=== PATIENT | male | born 1970 | race Caucasian/White ===

== ENCOUNTER 2017-08-30 06:14 | Inpatient (IN) | payer OTHER ==
[2017-08-30] VITALS (95 sets, daily range): BP systolic -9–218; BP diastolic -24–151
[~2017-08-30] VITALS: Ht 172.7 cm; Wt 121.7 kg
[2017-08-30] MEDS ORDERED: SODIUM CHLORIDE 0.9% 1000ML BAG (SEPSIS BOLUS) IV ONE (06:45)
[2017-08-30 07:39] LABS: BASOPHILS % 0.4 % (0.0-2.0); EOSINOPHILS % 0.2 % (0.0-5.0); LYMPHOCYTES % 14.6 % (20.0-50.0); MEAN CORPUSCULAR VOLUME 97.6 fL (80.0-94.0); MONOCYTES % 6.6 % (2.0-8.0); NEUTROPHILS % 78.2 % (40.0-76.0); RED CELL DISTRIBUTION WIDTH 14.8 % (11.6-14.6)
[2017-08-30 07:47] LABS: INR 2.4; PROTHROMBIN TIME 24.4 sec (9.4-11.6)
[2017-08-30 07:49] LABS: HEMATOCRIT. 71.2 % (42.0-52.0); HEMOGLOBIN. 22.6 g/dL (14.0-18.0)
[2017-08-30 07:54] LABS: CARBON DIOXIDE 16 mEq/L (21-32); CHLORIDE 100 mEq/L (98-107)
[2017-08-30 07:56] LABS: BG BASE EXCESS -23.1 mmol/L (-2.0-2.0); BG CARBOXYHEMOGLOBIN 0.2 % (0.5-1.5); BG DEOXYHEMOGLOBIN 1.7 % (0.0-5.0); BG FRACTION INSPIRED OXYGEN 40; BG HCO3 ACT 6.6 mmol/L (22.0-26.0); BG METHEMOGLOBIN 0.6 % (0.0-1.5); BG OXYGEN SATURATION 98.3 % (92.0-98.5); BG OXYHEMOGLOBIN 97.5 % (94.0-97.0); BG PCO2 26.6 mmHg (35.0-45.0); BG PO2 168.8 mmHg (75.0-100.0); BG SAMPLE SITE LEFT RADIAL; BG VENT MODE NASAL CANNULA
[2017-08-30] MEDS ORDERED: SODIUM CHLORIDE 0.9% 1,000 ML IV ONE ×2 (08:20→11:25)
[2017-08-30 08:22] LABS: PLATELET 218 x1000/uL (130-400)
[2017-08-30] MEDS ORDERED: PIPERACILLIN/TAZ 2.25G PREMIX 50 ML IV ONE (08:30)
[2017-08-30] MEDS ORDERED: CEFTRIAXONE 2 G PREMIX 50 ML IV ONE (08:30)
[2017-08-30] MEDS ORDERED: SODIUM BICARBONATE 8.4% 1 MEQ/ML 50ML SYR IV ONE ×3 (08:30→12:45)
[2017-08-30] MEDS ORDERED: PIPERACILLIN/TAZ 3.375G PREMIX 50 ML IV SCH (10:00)
[2017-08-30] MEDS ORDERED: VANCOMYCIN 1,250 MG in DEXT 5% WATER 250 ML IV SCH (10:00)
[2017-08-30] MEDS ORDERED: NOREPINEPHRINE 4 MG in DEXT 5% WATER 246 ML IV ONE (10:15)
[2017-08-30 10:17] LABS: PARTIAL THROMBOPLASTIN TIME 60.2 sec (23.4-31.0)
[2017-08-30 10:29] LABS: ETHANOL BLOOD < 10 mg/dL
[2017-08-30] MEDS ORDERED: NOREPINEPHRINE IV NR (10:45)
[2017-08-30] MEDS ORDERED: NOREPINEPHRINE 4 MG in DEXT 5% WATER 246 ML IV NR (10:45)
[2017-08-30] MEDS ORDERED: SODIUM CHLORIDE 0.45% IV NR (10:45)
[2017-08-30] MEDS ORDERED: SODIUM CHLORIDE 0.45% IV SCH (12:00)
[2017-08-30] MEDS ORDERED: VANCOMYCIN IV SCH (12:00)
[2017-08-30] MEDS ORDERED: SODIUM BICARBONATE 8.4% 1 MEQ/ML 50ML SYR IV SCH (12:45)
[2017-08-30 12:59] LABS: BG FRACTION INSPIRED OXYGEN 100; BG HCO3 ACT 9.9 mmol/L (22.0-26.0); BG PCO2 41.7 mmHg (35.0-45.0); BG PH 6.995 (7.350-7.450); BG PO2 326.7 mmHg (75.0-100.0); BG SAMPLE SITE LEFT BRACHIAL; BG TIDAL VOLUME(mL) 600 mL; BG TOTAL HEMOGLOBIN > 23.0 g/dL (12.0-18.0); BG VENT MODE VENT - A/C; BG VENT RATE 14 set
[2017-08-30] MEDS ORDERED: PHYTONADIONE 10MG/ML AMP SUBCUT SCH (13:00)
[2017-08-30] MEDS: PHENYLEPHRINE 40 MG in DEXT 5% WATER 496 ML IV PRN ×3 (13:09→22:53)
[2017-08-30] MEDS: SODIUM BICARBONATE 150 MEQ in DEXTROSE 5% WATER 1,000 ML IV SCH ×2 (13:19→22:11)
[2017-08-30] MEDS ORDERED: IPRATROPIUM/ALBUTEROL 0.5-3(2.5)MG/3ML NEB HHN PRN (13:30)
[2017-08-30] MEDS ORDERED: SODIUM CHLORIDE 10% FOR INH 15ML VIAL NEB INH SCH ×2 (14:00→18:30)
[2017-08-30] MEDS ORDERED: SODIUM BICARBONATE 150 MEQ in DEXTROSE 5% WATER 1,000 ML IV SCH (14:00)
[2017-08-30 14:16] LABS: AMMONIA < 25 uMol/L (<32)
[2017-08-30] MEDS: NOREPINEPHRINE 8 MG in DEXT 5% WATER 492 ML IV PRN ×2 (14:45→20:54)
[2017-08-30] MEDS ORDERED: HETASTARCH/NORMAL SALINE 500 ML PLAST..BAG IV PRN (14:45)
[2017-08-30 14:55] LABS: CREATINE KINASE MB FRACTION 99.3 ng/mL (0.5-3.6)
[2017-08-30 15:00] LABS: TROPONIN I 2.6 ng/mL (0.00-0.04)
[2017-08-30] MEDS ORDERED: HETASTARCH/NORMAL SALINE 500 ML IV SCH (15:15)
[2017-08-30] MEDS ORDERED: CEFEPIME 1,000 MG in DEXTROSE 5% WATER 50 ML IV SCH (18:00)
[2017-08-30 20:24] LABS: HEMATOCRIT. 55.3 % (42.0-52.0); MEAN CORPUSCULAR VOLUME 95.2 fL (80.0-94.0); MEAN PLATELET VOLUME 9.2 fl (7.4-10.4); PLATELET 124 x1000/uL (130-400); RED BLOOD CELL COUNT 5.81 mill/uL (4.7-6.1); RED CELL DISTRIBUTION WIDTH 14.2 % (11.6-14.6)
[2017-08-30 20:25] LABS: INR 1.5; PROTHROMBIN TIME 15.6 sec (9.4-11.6)
[2017-08-30 20:33] LABS: CARBON DIOXIDE 18 mEq/L (21-32); CHLORIDE 95 mEq/L (98-107)
[2017-08-30] MEDS: IPRATROPIUM/ALBUTEROL 0.5-3(2.5)MG/3ML NEB HHN SCH (20:40)
[2017-08-30 20:49] LABS: PLATELET ESTIMATE SLIGHTLY DECREASED
[2017-08-30] MEDS ORDERED: VANCOMYCIN 1 G PREMIX 200 ML IV SCH (21:00)
[2017-08-30 23:19] LABS: PHOSPHORUS 9.4 mg/dL (2.5-4.9)
[2017-08-31] VITALS (254 sets, daily range): BP systolic -7–166; BP diastolic -7–90
[2017-08-31] MEDS ORDERED: WATER IV PRN (01:00)
[2017-08-31] MEDS ORDERED: PHENYLEPHRINE 80 MG in DEXT 5% WATER 496 ML IV PRN (01:00)
[2017-08-31] MEDS ORDERED: DEXT 5% IV PRN (01:00)
[2017-08-31] MEDS ORDERED: NOREPINEPHRINE IV PRN (01:00)
[2017-08-31] MEDS: IPRATROPIUM/ALBUTEROL 0.5-3(2.5)MG/3ML NEB HHN SCH ×3 (01:00→12:00)
[2017-08-31] MEDS ORDERED: NOREPINEPHRINE 32 MG in DEXT 5% WATER 468 ML IV PRN (01:30)
[2017-08-31] MEDS: PHENYLEPHRINE 80 MG in DEXT 5% WATER 492 ML IV PRN ×2 (01:53→10:01)
[2017-08-31 02:22] LABS: TROPONIN I 4.8 ng/mL (0.00-0.04)
[2017-08-31] MEDS: SODIUM BICARBONATE 150 MEQ in DEXTROSE 5% WATER 1,000 ML IV SCH ×2 (04:46→13:00)
[2017-08-31 06:02] LABS: BASOPHILS % 0.1 % (0.0-2.0); HEMOGLOBIN. 17.9 g/dL (14.0-18.0); LYMPHOCYTES % 21.7 % (20.0-50.0); MEAN CORPUSCULAR HEMOGLOBIN 31.6 pg (28.0-32.0); MEAN CORPUSCULAR VOLUME 93.2 fL (80.0-94.0); MEAN PLATELET VOLUME 9.9 fl (7.4-10.4); MONOCYTES % 11.5 % (2.0-8.0); NEUTROPHILS % 66.7 % (40.0-76.0); PLATELET 105 x1000/uL (130-400); RED BLOOD CELL COUNT 5.68 mill/uL (4.7-6.1); RED CELL DISTRIBUTION WIDTH 14.7 % (11.6-14.6)
[2017-08-31 06:22] LABS: CARBON DIOXIDE 25 mEq/L (21-32); CHLORIDE 89 mEq/L (98-107); PHOSPHORUS 6.1 mg/dL (2.5-4.9)
[2017-08-31] MEDS: VASOPRESSIN 10 UNIT in SODIUM CHLORIDE 0.9% 99.5 ML IV PRN ×3 (08:03→16:48)
[2017-08-31 08:59] LABS: CREATINE KINASE MB FRACTION 454.6 ng/mL (0.5-3.6)
[2017-08-31] MEDS ORDERED: SODIUM CHLORIDE 0.45% IV PRN (09:00)
[2017-08-31] MEDS ORDERED: DOPAMINE HCL IV PRN (09:00)
[2017-08-31] MEDS ORDERED: FAMOTIDINE 20MG/2ML VIAL IV SCH (09:00)
[2017-08-31 09:53] LABS: CREATINE KINASE 28783 IU/L (39-308)
[2017-08-31] MEDS ORDERED: SODIUM CHLORIDE 0.9% IV SCH (10:00)
[2017-08-31] MEDS ORDERED: CALCIUM CHLORIDE IV SCH (10:00)
[2017-08-31 12:01] LABS: HEPATITIS B SURFACE ANTIGEN NEGATIVE
[2017-08-31] MEDS ORDERED: ACETAMINOPHEN 650MG/20.3ML UDC PO PRN (12:15)
[2017-08-31 12:27] LABS: HEPATITIS B CORE AB IGM NEGATIVE
[2017-08-31 12:28] LABS: HEPATITIS A AB IGM NEGATIVE (NEGATIVE)
[2017-08-31 13:49] LABS: CLARITY URINE TURBID (CLEAR); COLOR URINE DARK YELLOW (YELLOW); KETONES URINE TRACE (NEGATIVE); LEUKOCYTE ESTERASE URINE TRACE (NEGATIVE); NITRITE URINE NEGATIVE (NEGATIVE); OCCULT BLOOD URINE 3+ (NEGATIVE); PROTEIN URINE 2+ (NEGATIVE); SPECIFIC GRAVITY URINE 1.022 (1.005-1.030); UROBILINOGEN URINE 0.2 E.U./dL (0.2-1.0)
[2017-08-31 14:18] LABS: *AMPHETAMINES SCREEN URINE NEGATIVE (NEGATIVE); *BARBITURATES SCREEN URINE NEGATIVE (NEGATIVE); *BENZODIAZEPINES SCREEN URINE PRESUMTIVE POSITIVE (NEGATIVE); *COCAINE SCREEN URINE NEGATIVE (NEGATIVE); CANNABINOID URINE SCREEN NEGATIVE (NEGATIVE); METHADONE URINE SCREEN NEGATIVE (NEGATIVE); OPIATES URINE SCREEN NEGATIVE (NEGATIVE); PHENCYCLIDINE URINE SCREEN NEGATIVE (NEGATIVE)
[2017-08-31] MEDS ORDERED: MORPHINE SULFATE 100 MG in SODIUM CHLORIDE 0.9% 100 ML IV PRN (16:00)
== END 2017-08-31 18:50 | disposition expired | DRG 871 ==
LOC: ER 06:31 → EDBEDREQSVC 11:30 → EDBEDREQTM 11:30 → EDBEDREQ 11:30 → MICUSO 11:31 → EDBEDREQTM 11:35 → EDBEDREQ 11:35
PROVIDERS: ADMIT Family Medicine; ATTEND Family Medicine
PROC: 5A12012 Performance of Cardiac Output, Single, Manual (ICD-10-PCS; principal; 2017-08-30)
PROC: 5A1945Z Respiratory Ventilation, 24-96 Consecutive Hours (ICD-10-PCS; 2017-08-30)
PROC: 0BH17EZ Insertion of Endotracheal Airway into Trachea, Via Natural or Artificial Opening (ICD-10-PCS; 2017-08-30)
DX: A41.9 Sepsis, unspecified organism (principal); D65 Disseminated intravascular coagulation [defibrination syndrome]; I21.4 Non-ST elevation (NSTEMI) myocardial infarction; I46.9 Cardiac arrest, cause unspecified; E43 Unspecified severe protein-calorie malnutrition; J96.00 Acute respiratory failure, unspecified whether with hypoxia or hypercapnia; J69.0 Pneumonitis due to inhalation of food and vomit; G93.1 Anoxic brain damage, not elsewhere classified; D75.1 Secondary polycythemia; E66.01 Morbid (severe) obesity due to excess calories; K72.00 Acute and subacute hepatic failure without coma; R65.21 Severe sepsis with septic shock; E87.1 Hypo-osmolality and hyponatremia; M62.82 Rhabdomyolysis; N17.9 Acute kidney failure, unspecified; Z68.41 Body mass index [BMI] 40.0-44.9, adult; E83.51 Hypocalcemia; E11.9 Type 2 diabetes mellitus without complications; E66.9 Obesity, unspecified; E78.00 Pure hypercholesterolemia, unspecified; E78.5 Hyperlipidemia, unspecified; F17.210 Nicotine dependence, cigarettes, uncomplicated; I10 Essential (primary) hypertension; J44.9 Chronic obstructive pulmonary disease, unspecified; K76.0 Fatty (change of) liver, not elsewhere classified; Z80.0 Family history of malignant neoplasm of digestive organs; Z82.49 Family history of ischemic heart disease and other diseases of the circulatory system
CPT/HCPCS: 36415; 36556; 36600; 70450; 71010; 71250; 74176; 76700; 77001; 78580; 80053; 80076; 80305; 80307; 80329; 81001; 82140; 82375; 82550; 82553; 82805; 82962; 83036; 83605; 83690; 83735; 84100; 84443; 84484; 85025; 85384; 85610; 85730; 86705; 86709; 86803; 87040; 87070; 87086; 87340; 87804; 92950; 93005; 93306; 93970; 94002; 94640; C1752; G0482; J0692; J0696; J2370; J2543; J3370; J3430; J3490; J7030; J7050; J7060; J7070; J7131; J7620